=== PATIENT | male | born 1990 | race Caucasian/White ===

== ENCOUNTER 2020-08-29 08:49 | Emergency (ER) | payer OTHER ==
[~2020-08-29] VITALS: Ht 185.4 cm; Wt 77.1 kg
--- NOTE | 2020-08-29 08:58 | NUR ---
BIB [employer] C/O HEROIN WITHDRAWAL, LAST USE "COUPLE DAYS AGO", ALSO C/O NAUSEA AND GENERALIZED BODY ACHES. TO ER BED 12, HOOKED TO BP CUFF AND POX, WARM BLANKET PROVIDED, PATIENT AAOx 4, BREATHING EVEN AND UNLABORED, NAD NOTED, DR COOPER AT BEDSIDE
[2020-08-29] MEDS ORDERED: KETOROLAC TROMETHAMINE INJ 30 MG/ML VIAL IM ONE (09:30)
[2020-08-29] MEDS ORDERED: LORAZEPAM 1 MG TABLET PO ONE (09:30)
[2020-08-29] MEDS ORDERED: ONDANSETRON 4 MG TAB.RAPDIS SL ONE (09:30)
[2020-08-29] MEDS ORDERED: KETOROLAC TROMETHAMINE 15 MG/ML VIAL ONE (09:45)
[2020-08-29] MEDS ORDERED: ONDANSETRON 4 MG TAB.RAPDIS ONE (09:46)
[2020-08-29] MEDS ORDERED: LORAZEPAM 1 MG TABLET ONE (09:46)
--- NOTE | 2020-08-29 09:46 | NUR ---
ADDENDUM: MEDICATIONS GIVEN BUT WAS NOT ABLE TO DOCUMENT: TORADOL INJ 15MG, GIVEN THROUGH IM @ RD ATIVAN 1MG PO. ZOFRAN 8MG SL.
--- NOTE | 2020-08-29 10:03 | NUR ---
Patient discharged in custody of Officer Jamaal of [facility] in stable condition. Written and verbal after care instructions given. Patient and [employer] officers verbalizes understanding of instruction.
[2020-08-29 10:04] VITALS: BP 121/69
--- NOTE | 2020-08-29 10:12 | NUR ---
provided w food tradodie
== END 2020-08-29 10:15 ==
LOC: ER 08:52
DX: F11.23 Opioid dependence with withdrawal (principal)
CPT/HCPCS: 96372; 99283; J1885; Q0162